=== PATIENT | male | born 1945 | race Caucasian/White ===

== ENCOUNTER 2016-10-29 04:14 | Inpatient (IN) | payer OTHER, MEDICARE ==
[~2016-10-29] VITALS: Ht 182.9 cm; Wt 99.8 kg
[2016-11-05] MEDS ORDERED: LIPITOR10 M1 PO (06:56)
[2016-11-05] MEDS ORDERED: FERROUS SULFAT325 M3 PO (06:57)
[2016-11-05] MEDS ORDERED: DAILY MULTIPLE1 EACH PO (06:57)
[2016-11-05] MEDS ORDERED: CRANBERRY200 MG PO (06:58)
[2016-11-05] MEDS ORDERED: GLUCOSAMINE CH1 EAC2 PO (06:58)
[2016-11-05 11:00] VITALS: BP 118/68
--- NOTE | 2016-11-05 12:00 | PN- Orthopedic ---
Subjective Subjective: Pt is now 2 hours s/p L TKA. He tolerated the procedure well and was transferred to the general medical floor. He is seen sitting in a chair after being mobilized by PT. as no major complaints at this time. He denies pain. He is tolerating sips of water. No nausea or vomiting. Art catheter remains in place. Otherwise denies headache , dizziness, chest pain, shortness of breath. Objective Vital Signs and I&Os Vital Signs Date Time Temp Pulse Resp B/P Pulse O2 O2 Flow FiO2 Ox Delivery Rate 11/05 1100 97.7 60 18 118/68 96 Room Air Room Air Intake & Output 11/05 1600 11/05 0800 11/05 0000 11/04 1600 11/04 0800 11/04 0000 Intake Total Output Total Balance Patient 220 lb Weight Physical Exam: Gen.: Patient is awake and alert. No acute distress. He is seen sitting in the chair at his bedside. Cardiac: Regular. No murmurs are appreciated. Pulmonary: Lungs are clear to auscultation bilaterally. Preoperative appreciated. Extremities: The left lower extremity dressing is clean, dry, and intact. There is no significant drainage appreciated. Mild swelling of the calf, within expected limits postoperatively. On-Q pain catheters in place. Feet are warm bilaterally. Sensation down to the foot bilaterally, but not of the toes as of yet. Strength of dorsiflexion and plantarflexion are 4-5 left side. Assessment/Plan Assessment/Plan Patient is a 71-year-old male with a history of hyperlipidemia and eczema, who is now postoperative day #0 status post left total knee arthroplasty. He remains stable from a surgical standpoint. Plan: -Continue physical therapy for mobilization. Weight-bear as tolerated. -Diet as tolerated. Continue IV fluids at 75 ML's per hour for now. Hep-Lock when tolerating by mouth. -Keep Art in place overnight for I's and O's. DC Art in a.m. if urine output is adequate. -Pain control with oral Dilaudid or IV morphine as needed. On-Q pain catheter is in place and functioning well. -Elliquis 2.5 mg twice a day for DVT prophylaxis. -Plan for dressing change on postop day #2. -24-hour antibiotic prophylaxis. -Colace BID and Miralax daily for bowel regimen. -Anticipate home discharge within 2 days or so. Core Measures/Miscellaneous Art Catheter Date In: 11/05/16 Still Needed? Yes Venous Thromboembolism VTE Risk Factors: Age > 40, Surgery VTE Contraindications: No Contraindications VTE Prophylaxis Ordered Inpt: Mech & Pharm VTE Diagnosis: No Beta Felipe Is Beta Felipe a Home Med? No Antibiotics Is Patient on Antibiotics? Yes If Yes: prophylaxis
[2016-11-05] MEDS ORDERED: ELIQUIS2.5 M1 PO (12:14)
[2016-11-05] MEDS ORDERED: HYDROMORPHONE HC2 M1 PO (12:14)
[2016-11-05] MEDS ORDERED: DOCUSATE SODIU100 M3 PO (12:14)
--- NOTE | 2016-11-05 12:21 | Patient Discharge Instructions ---
Discharge Instructions General Discharge Information You were seen/treated for: Left knee DJD/osteoarthritis You had these procedures: Left total knee arthroplasty Watch for these problems: Fever greater than 101, redness at the incision site, drainage, chest pain, shortness of breath Call Surgeon to remove: Cresencio (IF YOU HAVE THEM) No bath, but you may shower: Yes Other wound care: May shower as desired. If you have Steri-Strips, leave them in place until they fall off on their own. Diet Continue normal diet: Yes Activity Full Activity/No Limits: No Activity Self Limited: Yes Other activity limits: No strenuous activity or heavy lifting, pushing, or pulling. No driving while using narcotics. He may ambulate and weight-bear as tolerated. Acute Coronary Syndrome Inclusion Criteria At DC or during hospital stay patient has or had the following: ACS DIAGNOSIS No Discharge Core Measures Meds if any: Prescribed or Continued at Discharge Meds if any: NOT Prescribed or Continued at Discharge Congestive Heart Failure Inclusion Criteria At DC or during hospital stay patient has or had the following: CHF DIAGNOSIS No Discharge Core Measures Meds if any: Prescribed or Continued at Discharge Meds if any: NOT Prescribed or Continued at Discharge Cerebrovascular accident Inclusion Criteria At DC or during hospital stay patient has or had the following: CVA/TIA Diagnosis No Discharge Core Measures Meds if any: Prescribed or Continued at Discharge Meds if any: NOT Prescribed or Continued at Discharge Venous thromboembolism Inclusion Criteria VTE Diagnosis No VTE Type NONE VTE Confirmed by (Test) NONE Discharge Core Measures - Per Current guidelines, there needs to be overlap - treatment for the first 5 days of Warfarin therapy. - If discharged on Warfarin prior to 5 days of - overlap therapy, the patient will need to be - assessed for post discharge needs including - *Post discharge parental anticoagulation - *Warfarin and/or parental anticoagulation education - *Follow up date to check INR post discharge At least 5 days overlap therapy as Inpatient No Meds if any: Prescribed or Continued at Discharge Note: Overlap Therapy is Warfarin and Anticoagulant Meds if any: NOT Prescribed or Continued at Discharge
--- NOTE | 2016-11-05 12:24 | Surgical Discharge Summary ---
Visit Information Visit Dates Admission Date: 11/05/16 Discharge Date: 11/08/16 History of Present Illness Chief Complaint: Left knee DJD/osteoarthritis Medical History Blood Transfusion Hx: No Neurological: migraine EENT: NONE Cardiovascular: hyperlipidemia Respiratory: NONE Gastrointestinal: NONE Hepatic: NONE Renal: KIDNEY STONES Musculoskeletal: osteoarthritis Psychiatric: NONE Endocrine: NONE Blood Disorders: NONE Cancer(s): NONE HUMAN RESOURCES PARTNER/Reproductive: NONE History of MRSA: No History of VRE: No History of CDIFF: No Isolation History: Standard Influenza Vaccine: 06/28/16 Surgical History Pertinent Surgical History: hernia repair-inguinal Psychosocial History Where Do You Live? Home Who Do You Live With? Spouse Services at Home: None What is Your Primary Language? Macedonian Review of Systems: See H&P Hospital Course Course Attending Physician: LE BONDS,[facility] Primary Care Physician: RONALD BONDS,[facility] Course: is a 71-year-old male with a history of hyperlipidemia and eczema, who underwent elective left total knee arthroplasty on 11/05/2016. Patient tolerated the procedure very well and was transferred to the general medical floor to hours postoperatively. He was out of bed on postoperative day #0 and ambulating with physical therapy by postoperative day #1. He tolerated his diet , was voiding spontaneously, and pain was well-controlled. He was subsequently cleared for discharge. Allergies: Coded Allergies: NO KNOWN ALLERGIES (10/26/16) Significant Procedures: 11/05/2016 left total knee arthroplasty Disposition Summary Disposition Principal Diagnosis: Left knee DJD/osteoarthritis, status post left total knee arthroplasty Additional Diagnosis: None Discharge Disposition: home health services Discharge Instructions General Discharge Information Code Status: Full Code Patient's Diet: Regular diet as tolerated Patient's Activity: Patient weighed weight-bear as tolerated with rolling walker. He can progress as per PT recommendations. Avoid strenuous activity or heavy lifting. No driving while using narcotics. Follow-Up Instructions/Appts: Dry dressing change once daily. Follow-up with Kiah at 2 weeks postop. Medications at Discharge Discharge Medications: Continue taking these medications: Atorvastatin Calcium (Lipitor) 10 MG TABLET 1 Tablet ORAL EVERY OTHER DAY Multivitamin (Daily Multiple Vitamin) 1 EACH TABLET 1 Tablet ORAL DAILY Ferrous Sulfate (Ferrous Sulfate) 325 MG (65 MG IRON) TABLET 1 Tablet ORAL DAILY Cranberry Extract (Cranberry) 200 MG CAPSULE 1 Capsule ORAL DAILY Gluc HCl/Csa/Arthur Hy/Hyalur AC (Glucosamine Chondroitin Cap) 375 MG-300 MG-50 MG -2 MG CAPSULE 1 Capsule ORAL DAILY Start taking the following new medications: Apixaban (Eliquis) 2.5 MG TABLET 1 Tablet ORAL TWICE DAILY Days = 28 No Refills Hydromorphone HCl (Hydromorphone HCl) 2 MG TABLET 1-2 Tablet ORAL EVERY 4 HOURS NEEDED as needed for PAIN Qty = 30 No Refills Docusate Sodium (Docusate Sodium) 100 MG CAPSULE 1 Tablet ORAL TWICE DAILY as needed for CONSTIPATION Days = 7 No Refills
--- NOTE | 2016-11-05 12:57 | Operative Report ---
Operative/Inv Procedure Report Surgery Date: 11/05/16 Name of Procedure: Left total knee arthroplasty Pre-Operative Diagnosis: Left knee osteoarthritis Post-Operative Diagnosis: Same Estimated Blood Loss: less than 50ml Surgeon/Vocational Education Professional: EL BONDS,Bryan STERLING Anesthesia: block Implants: Christian triathlon total knee system-size 6 femur, size 7 tibia, 9 mm cruciate retaining polyethylene, 36 mm patella Drains: none Specimens: Femoral, tibial, patellar bone Microbiology: Urine Tourniquet: 61 minutes Complications: None Condition: Stable Operative Indication: Patient is a 71-year-old man with a long history of gradually worsening left knee pain. He has documented osteoarthritis with severe end-stage degenerative changes by x-ray. Conservative measures provided short-term relief. Due to ongoing issues with interference of normal activities of daily living he wished to proceed with total knee arthroplasty. Risks, benefits and expectations of surgical procedure were discussed including but not limited to persistent knee pain, need for subsequent surgery, infection, DVT, injury to blood vessel or nerve, anesthesia risks area Operative/Procedure Note Note: Patient was brought to the operating room and transferred to the operating table. Once under appropriate anesthesia the Left lower extremity was prepped and draped in standard fashion. Preoperative IV antibiotics were given prophylactically. Patient was under the TXA protocol. The left lower external he was elevated exsanguinated and tourniquet was inflated to 300 mm of pressure. Standard anterior incision was made for anticipated medial parapatellar approach. Incision was taken down sharply to the underlying retinaculum. A medial retinacular incision was made with minimal extension into the quadriceps tendon. Knee was flexed osteophytes were excised. Remnants of the medial and lateral meniscal cartilages were excised. Remnants of the ACL was excised. I then enter the intramedullary canal of the intramedullary drill. The distal femoral cutting jig was applied for 6 valgus cut. Cut was made. I was satisfied with this the femur was then sized to a size 6 area size 6 cutting jig was pinned in place and the cuts were made. I was satisfied with the preparation of the femur. I then applied the external tibial alignment guide for preparation of the tibia. Again remnants of the posterior horns of medial lateral meniscus were excised and the ACL was recessed. Cutting block was pinned in place for a neutral cut from medial to lateral and reproducing patient 's posterior slope area medial lateral structures were protected as as was the pCL. The cut was then made. Tibia was sized to a size 7. I did a trial reduction with a size 7 tibia size 6 femur and a 9 mm insert. I was satisfied with the stability I then turned my attention to the patella. Patella was measured and the appropriate thickness was removed. It was then measured for 36 mm patella. 3 lug holes were drilled the 2 lug holes for the femur were drilled tibial was marked the rotation of standpoint in all instruments were removed. Final preparation of the tibia was done with the tibial punch. Took all instruments from the knee and then copious irrigation followed. I used the anterior chamfer bone to plug the distal femur. Cement was being mixed on the back table. Once it was ready I applied dry clean bony surfaces of the tibia. Size 7 tibia was impacted in place and excess cement was removed with curettes. It was applied to the dry clean bony surfaces of distal femur and then the size 6 femur was impacted in place. Excess cement was removed with curettes. The polyethylene was inserted and the knee was taken out to full extension. Cement was applied to the dry clean bony surfaces of the patella and then the size 36 mm patella was impacted in place with excess cement being removed with a knife. Knee was allowed to stay in full extension. Cement hardened during this process I did a periarticular. Check periarticular injection of the local anesthetic. Once the cement was hardening took the knee through range of motion. Small pieces of excess cement were removed with osteotome. I was satisfied the stability with the 9 mm insert. Copious irrigation the tibial tray followed and then I inserted the definitive size 9 mm cruc[address] retaining polyethylene [address]. I was satisfied with the locking mechanism was confirmed. Knee was taken through range of motion. There was no need for lateral release excellent patellofemoral tracking tourniquet was deflated at 61 minutes obtained. Standard closure Vicryl suture deeper layers 2-0 Vicryl sutures subcutaneous case tissue in 2 layers and skin was closed running 3-0 Vicryl suture with the knee in flexion. Every level of closure was followed by copious irrigation. Progestins were applied and patient was awakened and taken to recovery room in good condition. No intraoperative complications. Discharge Disposition: PACU
[2016-11-05 13:00] VITALS: BP 112/68
[2016-11-05 16:05] VITALS: BP 114/70
[2016-11-05 17:15] VITALS: BP 116/72
[2016-11-05 20:41] VITALS: BP 118/72
[2016-11-05 22:31] VITALS: BP 116/72
[2016-11-06 04:09] VITALS: BP 122/78
[2016-11-06 07:02] VITALS: BP 118/60
--- NOTE | 2016-11-06 07:29 | PN- Orthopedic ---
See Addendum Subjective Subjective: The patient was seen this morning postoperatively day #2. He reports that he is having more pain than initially expected but it is otherwise under adequate control with the current pain regiment. He has no complaints at the current time and is eager to work with physical therapy. Objective Vital Signs and I&Os Vital Signs Date Time Temp Pulse Resp B/P Pulse O2 O2 Flow FiO2 Ox Delivery Rate 11/06 0702 99.0 74 20 118/60 94 11/06 0409 98.1 72 20 122/78 96 Room Air 11/05 2231 98.1 73 20 116/72 96 Room Air 11/05 2041 98.1 73 18 118/72 95 Room Air 11/05 1715 97.1 64 18 116/72 98 Room Air Room Air 11/05 1605 98.1 67 18 114/70 99 11/05 1300 97.9 62 18 112/68 98 Room Air Room Air 11/05 1100 97.7 60 18 118/68 96 Room Air Room Air Intake & Output 11/06 0800 11/06 0000 11/05 1600 11/05 0800 11/05 0000 11/04 1600 Intake Total 720 1140 1275 Output Total 1500 1400 1300 Balance -780 -260 -25 Intake, IV 600 300 275 Intake, Oral [phone] Number 0 0 Bowel Movements Output, Urine 1500 1400 1300 Patient 220 lb Weight Physical Exam: Gen.: Alert and in no obvious distress Skin: Warm and dry Extremities: Bilateral lower extremities are warm without calf tenderness or significant edema. Gross motor and sensory are intact. Left knee surgery dressing is clean, dry, and intact. His On-Q pain pump in place. Assessment/Plan Assessment/Plan Assessment: 71-year-old male status post left total knee arthroplasty postoperative day #1. The patient is progressing as expected and his pain is under adequate control. Plan: Out of bed with physical therapy patient is weightbearing as tolerated Continue current pain regiment Follow-up morning laboratory studies GI and DVT prophylaxis with Alps and Eliquis Hep-Lock IV fluids and DC Art catheter Keep On-Q pain pump until tomorrow Core Measures/Miscellaneous Art Catheter Date In: 11/05/16 Venous Thromboembolism VTE Risk Factors: Age > 40, Surgery VTE Contraindications: No Contraindications VTE Prophylaxis Ordered Inpt: Mech & Pharm VTE Diagnosis: No Beta Felipe Is Beta Felipe a Home Med? No Antibiotics Is Patient on Antibiotics? No
[2016-11-06 09:28] LABS: ABSOLUTE BASOPHIL COUNT 0 /CUMM (0.0-0.2); ABSOLUTE EOSINOPHIL COUNT 0 /CUMM (0.0-0.7); ABSOLUTE GRANULOCYTE CT 5.8 /CUMM (1.4-6.5); ABSOLUTE MONOCYTE COUNT 0.9 /CUMM (0.10-0.60); BASOPHIL % 0.3 % (0.0-2.0); EOSINOPHIL % 0.1 % (0-5); GRANULOCYTE % 74.8 % (42.2-75.2); MEAN CORPUSCULAR HGB CONC 34.4 G/DL (33.0-37.0); PLATELET COUNT 173 /CUMM (130-400); RBC DISTRIBUTION WIDTH 13.9 % (11.5-14.5); RED BLOOD CELL CT 3.65 /CUMM (4.70-6.10); WHITE BLOOD CELL COUNT 7.7 /CUMM (4.8-10.8)
[2016-11-06 15:44] VITALS: BP 120/62
--- NOTE | 2016-11-06 15:56 | NUR ---
NURSING NOTE: PT ACCIDENTALLY PULED OUT ONQ PUMP WHEN AMBULATING TO BR. ELVIN MARSH AWARE. WILL CONTINUE TO MONITOR
[2016-11-06 23:06] VITALS: BP 142/73
[2016-11-06 23:59] VITALS: BP 126/58
--- NOTE | 2016-11-07 06:50 | PN- Orthopedic ---
See Addendum Subjective Subjective: Reports pain controlled with oral dilaudid. Out of bed with PT yesterday. On q was inadvertently removed yesterday by the patient. He denies dizziness. No shortness of breath. No chest pains. Voiding without difficulty. No bm yet. He plans on going home tomorrow if he is cleared by PT doing stairs today. Fever overnight - he understands importance of incentive spirometer. Objective Vital Signs and I&Os Vital Signs Date Time Temp Pulse Resp B/P Pulse O2 O2 Flow FiO2 Ox Delivery Rate 11/07 0030 98.0 11/06 2359 101.2 84 20 126/58 95 Room Air 11/06 2336 101.2 11/06 2306 99.1 82 18 142/73 94 Room Air 11/06 1544 99.5 78 18 120/62 95 11/06 1130 98.1 11/06 0702 99.0 74 20 118/60 94 Intake & Output 11/07 0800 11/07 0000 11/06 1600 11/06 0800 11/06 0000 11/05 1600 Intake Total 240 1280 4118 484 5424 1275 Output Total 350 2400 1700 1500 1400 1300 Balance -110 -1120 -500 -780 -260 -25 Intake, IV 600 300 275 Intake, Oral 240 1280 1200 [phone] Number 0 0 Bowel Movements Output, Urine 350 2400 1700 1500 1400 1300 Patient 220 lb Weight Physical Exam: General - alert & oriented x 3. comfortable. no acute distress. Lungs - clear bilaterally. no w/r/r. Cardiac - s1s2. reg. Abdomen - soft. nontender. Extremities - warm bilaterally. dressings removed from left leg. incision approximated with steri strips. no erythema or exudates. nvi. calves soft and nontender b/l. Assessment/Plan Assessment/Plan 71-year-old male POD#2 s/p left total knee arthroplasty tolerating diet pain controlled with oral dilaudid dressings changed on q removed yesterday continue PT. to try stairs today f/u labs eliquis - dvt ppx (used due to migraine hx, so he can take OTC meds as needed) instructed IS monitor for fevers d/c planning for tomorrow to home will d/w Core Measures/Miscellaneous Art Catheter Date In: 11/05/16 Venous Thromboembolism VTE Risk Factors: Age > 40, Surgery VTE Contraindications: No Contraindications VTE Prophylaxis Ordered Inpt: Mech & Pharm VTE Diagnosis: No Beta Felipe Is Beta Felipe a Home Med? No Antibiotics Is Patient on Antibiotics? No
[2016-11-07 08:20] VITALS: BP 120/66
[2016-11-07 08:37] LABS: ABSOLUTE BASOPHIL COUNT 0 /CUMM (0.0-0.2); ABSOLUTE EOSINOPHIL COUNT 0 /CUMM (0.0-0.7); ABSOLUTE GRANULOCYTE CT 5.8 /CUMM (1.4-6.5); ABSOLUTE LYMPH COUNT 1.5 /CUMM (1.2-3.4); ABSOLUTE MONOCYTE COUNT 1.5 /CUMM (0.10-0.60); BASOPHIL % 0.3 % (0.0-2.0); EOSINOPHIL % 0.3 % (0-5); GRANULOCYTE % 65.5 % (42.2-75.2); MEAN CORPUSCULAR HGB CONC 34.2 G/DL (33.0-37.0); MEAN CORPUSCULAR VOLUME 96.7 FL (80.0-94.0); PLATELET COUNT 191 /CUMM (130-400); RBC DISTRIBUTION WIDTH 13.8 % (11.5-14.5); RED BLOOD CELL CT 3.83 /CUMM (4.70-6.10); WHITE BLOOD CELL COUNT 8.8 /CUMM (4.8-10.8)
[2016-11-07 16:16] VITALS: BP 120/62
--- NOTE | 2016-11-07 22:27 | RADIOLOGY REPORT ---
EXAMINATION: 2 views of the left knee CLINICAL INFORMATION: Status post left total knee arthroplasty COMPARISON: None available FINDINGS: Postoperative changes following left total knee arthroplasty. Expected alignment across the prosthesis elements. No acute fractures. There is a knee joint effusion, there is diffuse soft tissue swelling, and there is subcutaneous gas within the suprapatellar soft tissues, not unexpected following surgery. There is a small linear focus of increased density within the dorsomedial soft tissues of the left leg proximally that could reflect a surgical clip or foreign body in the can be clinically correlated. IMPRESSION: Expected postoperative changes following left total knee arthroplasty. Expected alignment across the prosthesis elements. No fractures. There is a small linear focus of increased density within the dorsomedial soft tissues of the left leg proximally that could reflect a surgical clip or foreign body in the can be clinically correlated.
[2016-11-08 00:30] VITALS: BP 102/64
[2016-11-08 07:20] VITALS: BP 120/72
--- NOTE | 2016-11-08 07:36 | PN- Orthopedic ---
Subjective Subjective: The patient was seen this morning postoperatively day #3. He reports his pain is under adequate control and he has no other complaints at the current time. Objective Vital Signs and I&Os Vital Signs Date Time Temp Pulse Resp B/P Pulse O2 O2 Flow FiO2 Ox Delivery Rate 11/08 0720 97.6 72 20 120/72 96 11/08 0338 97.8 11/08 0030 100.4 11/08 0030 83 20 102/64 96 Room Air 11/07 1616 98.2 85 20 120/62 96 Room Air 11/07 0820 99.4 80 20 120/66 96 Room Air Intake & Output 11/08 0800 11/08 0000 11/07 1600 11/07 0800 11/07 0000 11/06 1600 Intake Total 240 480 352 650 2395 1200 Output Total 214 708 7130 1700 Balance 240 480 -150 -110 -1120 -500 Intake, Oral 240 480 668 964 4983 1200 Number 1 Bowel Movements Output, Urine 273 908 3770 1700 Physical Exam: Gen.: Alert and in no obvious distress Skin: Warm and dry Extremities: Bilateral lower extremities are warm without calf tenderness or significant edema. Gross motor and sensory are intact. Left knee surgical incision is clean, dry, and intact without signs of infection. Assessment/Plan Assessment/Plan Assessment: 71-year-old male status post left total knee arthroplasty postoperative day #3. The patient is progressing as expected, his pain is under adequate control, and he is ambulating adequately with physical therapy. Plan: Continue to work with physical therapy Follow-up morning laboratory studies GI and DVT prophylaxis Continue current pain regiment Daily dry dressing change to surgical site Discharge home later today Core Measures/Miscellaneous Art Catheter Date In: 11/05/16 Venous Thromboembolism VTE Risk Factors: Age > 40, Surgery VTE Contraindications: No Contraindications VTE Prophylaxis Ordered Inpt: Mech & Pharm VTE Diagnosis: No Beta Felipe Is Beta Felipe a Home Med? No Antibiotics Is Patient on Antibiotics? No
[2016-11-08 09:04] LABS: ABSOLUTE BASOPHIL COUNT 0 /CUMM (0.0-0.2); ABSOLUTE EOSINOPHIL COUNT 0.1 /CUMM (0.0-0.7); ABSOLUTE GRANULOCYTE CT 5.6 /CUMM (1.4-6.5); ABSOLUTE LYMPH COUNT 1.5 /CUMM (1.2-3.4); ABSOLUTE MONOCYTE COUNT 1.2 /CUMM (0.10-0.60); BASOPHIL % 0.3 % (0.0-2.0); EOSINOPHIL % 0.8 % (0-5); GRANULOCYTE % 66.7 % (42.2-75.2); HEMATOCRIT 34.9 % (42-52); MEAN CORPUSCULAR HGB CONC 34.2 G/DL (33.0-37.0); MEAN CORPUSCULAR VOLUME 96.7 FL (80.0-94.0); MEAN PLATELET VOLUME 8.2 FL (7.4-10.4); PLATELET COUNT 209 /CUMM (130-400); RBC DISTRIBUTION WIDTH 13.8 % (11.5-14.5); RED BLOOD CELL CT 3.61 /CUMM (4.70-6.10); WHITE BLOOD CELL COUNT 8.4 /CUMM (4.8-10.8)
== END 2016-11-08 11:30 | disposition home health service (06) | DRG 470 ==
LOC: ENRESERVDT → ENRESERVTM → UNDOADMIN 04:14 → SDA 04:14 → 2NB 11-05 01:02 → EDBD 11-05 07:00 → 2NB 11-05 10:53
PROVIDERS: Nurse Practitioner; Physician Assistant; Physician Assistant Surgical; ADMIT Orthopaedic Surgery
PROC: 0SRD0J9 Replacement of Left Knee Joint with Synthetic Substitute, Cemented, Open Approach (ICD-10-PCS; principal; 2016-11-05)
DX: M17.12 Unilateral primary osteoarthritis, left knee (principal); E78.5 Hyperlipidemia, unspecified; L30.9 Dermatitis, unspecified; G43.909 Migraine, unspecified, not intractable, without status migrainosus
CPT/HCPCS: 2NBP; 36415; 73560-LT; 82436; 87086; 88305; 97110-GO; 97116-GO; 97161-GP; 97530-GO; C1713; C9290; J0131; J0690; J2405; J2795; J3370; J7040; J7060